=== PATIENT | male | born 1985 | race Caucasian/White ===

== ENCOUNTER 2018-06-06 02:04 | Emergency (ER) | payer MEDICAID ==
[2018-06-06] MEDS: ONDANSETRON (ODT) 4 MG TAB ODT (04:04)
[2018-06-06] MEDS: HYDROCODONE/APAP (5/325) TAB PO (04:04)
[2018-06-06] MEDS: LIDOCAINE 2%/EPI (MDV) 20ML INJ INJ (04:24)
== END 2018-06-06 05:46 | disposition home or self-care (01) ==
LOC: FTE 02:04
DX: S01.81XA Laceration without foreign body of other part of head, initial encounter (principal); Y04.0XXA Assault by unarmed brawl or fight, initial encounter
CPT/HCPCS: 12014; 70450; 70480; 99284-25

== ENCOUNTER 2018-06-12 09:59 | Emergency (ER) | payer MEDICAID | END 2018-06-12 11:24 | disposition home or self-care (01) | LOC: FTE 09:59 | DX: S06.0X9A Concussion with loss of consciousness of unspecified duration, initial encounter (principal); S80.02XA Contusion of left knee, initial encounter; Y09 Assault by unspecified means | CPT/HCPCS: 73562; 99283-25 ==